=== PATIENT | female | born 1980 | race Caucasian/White ===

== ENCOUNTER → 2023-04-08 10:40 | Outpatient (BNVA) | payer OTHER, SELFPAY | PROVIDERS: Visit Provider Physician Assistant ==

== ENCOUNTER 2023-04-21 08:23 | Outpatient (AMB) | payer OTHER, SELFPAY ==
--- OUTSIDE RECORDS SUMMARY | 2023-04-21 08:24 | XMS_ITS | Continuity of Care Document ---
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
--- NOTE | 2023-04-21 12:07 | MHC.OFFVISWM ---
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 BMI 46.6 HPI Details Start time: 12pm, End time: 12.42pm ?I spent 37 minutes speaking with the patient on the phone plus an additional 5 minutes reviewing and updating records for a total of 42 minutes HPI Comments History of Present Illness Details Previous weight loss efforts: Weight Watchers, Keto diet, meal prep plans Wakes up: 5.30am, Sleeps: 11pm Breakfast: 6am (scrambled eggs with cheese) Lunch: 12-1pm (chicken salad, pizza, grinders) Dinner: 6pm (chicken steak, hamburger) Snacks: 10.30am (peppers, cherries), 2.30pm (cherries, peppers) Exercise: Gym Fluids: Coffee (1 cup/day with creamer), tea: 3-4 cups/day (plain), juice: none, soda: 1/wk, ETOH: 1/ 3 months PFSH Medical History (Updated 04/21/23 @ 12:10 by Damon Hayden MD) Asthma DJD (degenerative joint disease) Hyperlipidemia Morbid obesity Surgical History (Updated 04/08/23 @ 11:24 by Chela Schafer CMA) History of ankle surgery Hx of cholecystectomy Hx of colonoscopy Social History (Updated 04/08/23 @ 10:59 by Chela Schafer CMA) Alcohol intake: current Alcohol intake frequency: holidays/special occasions only Patient Tobacco Use Status: Never used Tobacco Assessment & Plan Assessment & Plan (1) Morbid obesity: Code(s): E66.01 - Morbid (severe) obesity due to excess calories Plan: 1.? Plan for lap sleeve gastrectomy. If diaphragmatic or ventral hernias are present at time of surgery, these will be repaired laparoscopically as well. Risks and complications were discussed in detail including possible conversion to an open procedure, anastomotic leak, bleeding requiring transfusion, small bowel obstruction, , DVT and pulmonary embolism, cardiac, or pulmonary complications, as chcf complications such as anastomotic ulcer, insufficient weight loss and vitamin deficiencies. I emphasized the importance of close follow-up, adherence to instructions and good communication. 2. Nutritional counseling. Start with 2 Pure protein (buy at [employer], [employer], [employer], [employer]) shakes (HALF scoop EACH in 8oz low fat unsweetened almond milk each) at 7am-9am and 10am-12pm, 2 protein bars (Zone Perfect protein bars, buy at [employer], ?[employer], [employer], or [employer]) at 1pm-3pm and 4pm-6pm, dinner at 7pm (10 forks of protein and 10 forks of salad/vegetables) and one more protein bar after dinner at 9pm-11pm. Meal to include lean meat (beef, fish, pork, turkey, chicken), or luxembourger yogurt, or egg whites, or beans with a salad with olive oil and fruits (berries, pears, apples, kiwi). Avoid salt, breads, potatoes, rice, pasta, desserts. 3. Each shake would be drunk slowly, like coffee in a period of 2 hours. May add your coffee into your shakes, if flavors match. 4. Cut each bar in 4 pieces and eat each piece in 30min ?to make each bar last 2 hours. 5. I emphasized the importance of measuring accurately the food portion and measure it when serving the food in plate 6. The meal portions include 10 full-size forks of meat and 10 full-size forks of salad. You always eat the meat portion but you can replace up to 5 forks for salad/vegetables with rice, potatoes or pasta, or a fruit ?if you like. The less you do it the better weight loss will be. 7. One full-size fork is what it can be scooped on the fork without falling aside and not what can be bit with the fork. Use regular forks like those you find in a typical restaurant. 8.? Please send me weight measurements as soon as possible and then once a week. Always include your diet and exercise plan. 9. Start walking outside daily, tracking calories with a goal of 300 calories per day, daily. Goal is to burn 2000 calories per week on exercise, which means either 300 calories daily, or 400 calories 5 days per week, or 500 calories 4 days per week, or 650 calories 3 days per week. 10. Alternatively purchase a stationary bike, elliptical or treadmill at home that can track calories. Let me know if you do so I can give you an exercise plan. 11.?It is important of avoiding and for at least 18 months postoperatively and has been discussed at the infosession. 12. Goal is to lose at least 1.5-2lbs per week 13. Goal to lose 10% of your weight before surgery, which is about 29lbs. Ultimate weight goal: 264lbs before surgery 14. Please follow the diet plan exactly without any change. If you don't like something about the plan or you feel hungry you need to communicate with me so I can help you revise the plan. You should not change the plan yourself. (2) Hyperlipidemia: Code(s): E78.5 - Hyperlipidemia, unspecified (3) Asthma: Code(s): J45.909 - Unspecified asthma, uncomplicated Orders: Orders Vitamin B12 and Folate Today E66.01 - Morbid (severe) obesity due to excess calories, E78.5 - Hyperlipidemia, unspecified, J45.909 - Unspecified asthma, uncomplicated Comprehensive Met. Panel Today E66.01 - Morbid (severe) obesity due to excess calories, E78.5 - Hyperlipidemia, unspecified, J45.909 - Unspecified asthma, uncomplicated C Reactive Protein Today E66.01 - Morbid (severe) obesity due to excess calories, E78.5 - Hyperlipidemia, unspecified, J45.909 - Unspecified asthma, uncomplicated Ferritin Today E66.01 - Morbid (severe) obesity due to excess calories, E78.5 - Hyperlipidemia, unspecified, J45.909 - Unspecified asthma, uncomplicated Hemoglobin A1c Today E66.01 - Morbid (severe) obesity due to excess calories, E78.5 - Hyperlipidemia, unspecified, J45.909 - Unspecified asthma, uncomplicated Insulin Today E66.01 - Morbid (severe) obesity due to excess calories, E78.5 - Hyperlipidemia, unspecified, J45.909 - Unspecified asthma, uncomplicated IRON PROFILE Today E66.01 - Morbid (severe) obesity due to excess calories, E78.5 - Hyperlipidemia, unspecified, J45.909 - Unspecified asthma, uncomplicated Lipid Panel Today E66.01 - Morbid (severe) obesity due to excess calories, E78.5 - Hyperlipidemia, unspecified, J45.909 - Unspecified asthma, uncomplicated PTHI Today E66.01 - Morbid (severe) obesity due to excess calories, E78.5 - Hyperlipidemia, unspecified, J45.909 - Unspecified asthma, uncomplicated TSH reflex Free T4 Today E66.01 - Morbid (severe) obesity due to excess calories, E78.5 - Hyperlipidemia, unspecified, J45.909 - Unspecified asthma, uncomplicated Vitamin A Today E66.01 - Morbid (severe) obesity due to excess calories, E78.5 - Hyperlipidemia, unspecified, J45.909 - Unspecified asthma, uncomplicated Vitamin B1 Today E66.01 - Morbid (severe) obesity due to excess calories, E78.5 - Hyperlipidemia, unspecified, J45.909 - Unspecified asthma, uncomplicated Vitamin D 25-OH Total Today E66.01 - Morbid (severe) obesity due to excess calories, E78.5 - Hyperlipidemia, unspecified, J45.909 - Unspecified asthma, uncomplicated Zinc Today E66.01 - Morbid (severe) obesity due to excess calories, E78.5 - Hyperlipidemia, unspecified, J45.909 - Unspecified asthma, uncomplicated ECG 12 lead EKG Today E66.01 - Morbid (severe) obesity due to excess calories, E78.5 - Hyperlipidemia, unspecified, J45.909 - Unspecified asthma, uncomplicated FL upper GI w air Today E66.01 - Morbid (severe) obesity due to excess calories, E78.5 - Hyperlipidemia, unspecified, J45.909 - Unspecified asthma, uncomplicated Complete Blood Count Auto Diff Today E66.01 - Morbid (severe) obesity due to excess calories, E78.5 - Hyperlipidemia, unspecified, J45.909 - Unspecified asthma, uncomplicated H Pylori Breath Test Today E66.01 - Morbid (severe) obesity due to excess calories, E78.5 - Hyperlipidemia, unspecified, J45.909 - Unspecified asthma, uncomplicated US abdomen comp w elastography Today E66.01 - Morbid (severe) obesity due to excess calories, E78.5 - Hyperlipidemia, unspecified, J45.909 - Unspecified asthma, uncomplicated XR chest 2V Today E66.01 - Morbid (severe) obesity due to excess calories, E78.5 - Hyperlipidemia, unspecified, J45.909 - Unspecified asthma, uncomplicated Referrals Behavioral Health Referral E66.01 - Morbid (severe) obesity due to excess calories, E78.5 - Hyperlipidemia, unspecified, J45.909 - Unspecified asthma, uncomplicated Nutrition/Dietitian Referral E66.01 - Morbid (severe) obesity due to excess calories, E78.5 - Hyperlipidemia, unspecified, J45.909 - Unspecified asthma, uncomplicated Telehealth Telehealth Location of provider rendering services: practice address Location of patient: address on file Patient Identification confirmed using: Name, : Yes Telehealth method: voice only Patient verbally consented to treatment: Yes Patient verbally consented to billing insurance company: Yes Patient informed of any privacy concerns related to visit: Yes Minutes spent on Phone/Video with Pt.: 42 Coding Level of Care Code Tele New Pt Level 3 (62400) Diagnoses Morbid obesity E66.01 Hyperlipidemia E78.5 Asthma J45.909 Time Spent (min) 42
[2023-04-21 12:19] VITALS: BMI 46.6
== END 2023-04-21 12:43 | disposition home or self-care (01) ==
LOC: HO.HBS 08:23
PROVIDERS: Visit Provider Surgery
DX: E66.01 Morbid (severe) obesity due to excess calories (principal); Z68.42 Body mass index [BMI] 45.0-49.9, adult; E78.5 Hyperlipidemia, unspecified; J45.909 Unspecified asthma, uncomplicated
CPT/HCPCS: 99204

== ENCOUNTER → 2023-04-21 08:23 | Outpatient (BNVA) | payer OTHER, SELFPAY | PROVIDERS: Visit Provider Surgery ==

== ENCOUNTER → 2023-05-01 08:18 | Outpatient (BNVA) | payer OTHER, SELFPAY | PROVIDERS: PCP Student in an Organized Health Care Education/Training Program; Visit Provider Physician Assistant Surgical | DX: Z11.0 Encounter for screening for intestinal infectious diseases (principal) | CPT/HCPCS: 99211 ==

== ENCOUNTER 2023-05-01 15:15 | Outpatient (REF) | payer OTHER, SELFPAY ==
[2023-05-06 15:29] LABS: H Pylori Breath Test Negative (Negative)
== END 2023-05-01 15:16 | disposition home or self-care (01) ==
LOC: HO.LNP 15:15
PROVIDERS: Visit Provider Surgery
DX: E66.01 Morbid (severe) obesity due to excess calories (principal); E78.5 Hyperlipidemia, unspecified; J45.909 Unspecified asthma, uncomplicated
CPT/HCPCS: 83013

== ENCOUNTER 2023-05-07 15:06 | Outpatient (REF) | payer OTHER, SELFPAY ==
--- NOTE | ~2023-05-07 | XR_ITS ---
EXAMINATION: XR CHEST 2 VIEWS CLINICAL INFORMATION: Morbid obesity. COMPARISON: None. TECHNIQUE: Frontal and lateral views of the chest were obtained. FINDINGS: The heart, great vessels, pulmonary vasculature and mediastinum are normal. The lungs show no focal infiltrate, effusion or pneumothorax. There is no acute osseous abnormality. XR/XR chest 2V IMPRESSION: No active cardiopulmonary disease.
--- NOTE | ~2023-05-07 | US_ITS ---
EXAMINATION: US COMPLETE ABDOMEN WITH LIVER ELASTOGRAPHY CLINICAL INFORMATION: Morbid obesity. COMPARISON: None available. TECHNIQUE: Real-time imaging of the abdominal viscera. Noninvasive ultrasound liver fibrosis assessment is performed using Dean ElastPQ point quantification shear wave elastography (2D-SWE) with a C5-2 MHz transducer. Multiple elastography samples are obtained. FINDINGS: PANCREAS: Obscured by overlying bowel gas with only portions of the head being identified which appears unremarkable. ABDOMINAL AORTA: The proximal, middle, and distal aortic segments are normal in caliber. INFERIOR VENA CAVA: Visualized portions are normal. LIVER: The liver has increased echogenicity consistent with fatty infiltration/hepatocellular disease. No focal masses or intrahepatic bile duct dilatation is seen. The right lobe measures 17.8 cm in length. The left lobe measures 10.8 cm in length. Portal flow is hepatopedal. Shear wave liver elastography median stiffness is 1.47 m/s (reference: normal median stiffness is 1.3 m/s or less). IQR/median stiffness to assess sampling precision is 0.24 (reference: good quality data set is IQR/median stiffness of 0.15 or less). GALLBLADDER: Status post cholecystectomy. COMMON BILE DUCT: Normal in caliber measuring 0.4 cm in diameter. RIGHT KIDNEY: Normal. No hydronephrosis. No renal calculi or focal parenchymal lesions. The kidney measures 9.6 cm in maximum dimension. LEFT KIDNEY: Normal. No hydronephrosis. No renal calculi or focal parenchymal lesions. The kidney measures 10.2 cm in maximum dimension. SPLEEN: Prominent. No focal mass. The spleen measures 12.7 cm in maximum dimension. FREE FLUID: No free fluid appreciated. US/US abdomen comp w elastography IMPRESSION: 1. Fatty infiltration of the liver. 2. Prominent spleen at 12.7 cm in vertical span. 3. Liver elastography: Although measurements appear to rule out compensated advanced chronic liver disease, there is statistical variability of the sampling which decreases accuracy. REFERENCE: Society of Radiologists in Ultrasound Liver Stiffness Thresholds (2020): LIVER STIFFNESS THRESHOLDS: *Liver Stiffness equal or less than 1.3 m/s: High probability of being normal. *Liver Stiffness less than 1.7 m/s: In the absence of other known clinical signs, rules out compensated advanced chronic liver disease. *Liver Stiffness 1.7-2.1 m/s: Suggestive of compensated advanced chronic liver disease but need further test for confirmation. *Liver Stiffness over 2.1 m/s: Rules in compensated advanced chronic liver disease. *Liver Stiffness over 2.4 m/s: Suggestive of clinically significant portal hypertension. QUALITY OF DATA SET: *IQR/Median value equal or less than 0.15 implies a quality data set. *IQR/Median value over 0.15 implies a poor quality data set. SIGNIFICANT CHANGE FROM PRIOR EXAM: Significant change if liver stiffness measurement is 10% or greater from prior exam. OTHER CONSIDERATIONS: The stage of liver fibrosis may be overestimated in the setting of acute hepatitis, liver inflammation, elevated liver function tests, hepatic vascular congestion, obstructive cholestasis, non-fasting state, and infiltrative diseases such as amyloidosis and lymphoma. In some patients with NAFLD, the liver stiffness thresholds for compensated advanced chronic liver disease may be lower. In causes other than viral hepatitis and NAFLD, liver stiffness thresholds are not well established.
[2023-05-07 15:59] LABS: MANUAL DIFF FLAG NO
[2023-05-07 17:31] LABS: Basophils Percent Auto 0.4 % (0-2); Eosinophils Absolute Auto 0.1 X10*3/uL (0.0-0.4); Eosinophils Percent Auto 1.6 % (0-4); Hematocrit 42.9 % (37.0-47.0); Hemoglobin 13.7 g/dl (12.0-16.0); Imm Gran Abs Auto 0.02 X10*3/uL (0.00-0.03); Imm Gran Pct Auto 0.3 % (0.0-0.4); Lymphocytes Absolute Auto 2.1 X10*3/uL (1.2-4.9); Lymphocytes Percent Auto 31.6 % (20-40); Mean Corpuscular HGB Conc 31.9 g/dl (31.0-35.0); Mean Corpuscular Hemoglobin 26.7 pg (27.0-33.0); Mean Corpuscular Volume 83.6 fL (80.0-98.0); Mean Platelet Volume 10.1 fL (9.4-12.3); Monocytes Absolute Auto 0.5 X10*3/uL (0.1-1.2); Monocytes Percent Auto 6.7 % (2-11); Neutrophils Percent Auto 59.4 % (45-73); Platelet Count 372 X10*3/uL (160-400); Red Blood Count 5.13 X10*6/uL (4.20-5.50); Red Cell Distribution Width 13.6 % (11.0-16.0); White Blood Count 6.7 X10*3/uL (4.8-10.8)
[2023-05-07 18:08] LABS: Alanine Aminotransferase 8 U/L (0-31); Albumin Level 4.3 g/dL (3.5-5.0); Alkaline Phosphatase 75 U/L (39-117); Anion Gap 14 (12-20); Aspartate Amino Transferase 14 U/L (5-31); Bilirubin Total 0.7 mg/dL (0.0-1.0); Blood Urea Nitrogen 15 mg/dL (9-16); C Reactive Protein 1.03 mg/dL (< or = 0.50); Calcium 9.5 mg/dL (8.4-10.2); Carbon Dioxide 27 mmol/L (22-29); Chloride 104 mmol/L (96-108); Cholesterol 209 mg/dL (<200); Estimated Glomerular Filt Rate > 60; Glucose Random 75 mg/dL (60-115); HDL Cholesterol 44 mg/dL (>40); Iron 46 mcg/dL (30-160); LDL Cholesterol Calculated 146 mg/dL (<100); Percent Iron Saturation 14 % (15-50); Potassium 3.7 mmol/L (3.3-5.1); Sodium 141 mmol/L (135-145); Total Iron Binding Capacity 319 mcg/dL (228-428); Total Protein 7.9 g/dL (6.5-8.0); Triglycerides 99 mg/dL (<150); Unsaturated Iron Binding 273 ug/dL
[2023-05-07 18:24] LABS: Ferritin 22 ng/mL (10-250); Insulin 6 uU/mL (2-29); TSH reflex Free T4 1.97 uIU/mL (0.32-4.0); Vitamin D 25-OH Total 38.6 ng/mL (>30)
[2023-05-07 18:34] LABS: Folate 13.1 ng/mL (> or = 4.0); Vitamin B12 881 pg/mL (200-900)
[2023-05-08 05:23] LABS: Estimated Average Glucose 97 mg/dL
[2023-05-09 23:58] LABS: Calcium (PTHI) 9.5 mg/dL (8.6-10.2); PTHI 62 pg/mL (16-77)
[2023-05-10 17:18] LABS: Zinc 80 mcg/dL (60-130)
[2023-05-12 15:04] LABS: Vitamin B1 14 nmol/L (8-30)
[2023-05-14 17:19] LABS: Vitamin A 28 mcg/dL (38-98)
== END 2023-05-07 15:07 | disposition home or self-care (01) ==
LOC: HO.US 15:06
PROVIDERS: PCP Student in an Organized Health Care Education/Training Program; Visit Provider Surgery
DX: E66.01 Morbid (severe) obesity due to excess calories (principal); E78.5 Hyperlipidemia, unspecified; J45.909 Unspecified asthma, uncomplicated
CPT/HCPCS: 36415; 71046; 76705; 76981; 80053; 80061; 82306; 82607; 82728; 82746; 83036; 83525; 83540; 83970; 84425; 84443; 84590; 84630; 85025; 86140

== ENCOUNTER 2023-05-13 10:11 | Outpatient (AMB) | payer OTHER, SELFPAY ==
--- NOTE | 2023-05-13 10:22 | MHC.AMNUTRGE ---
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 no issues, has been consistent. Hasn't started exercise yet . No classes yet, pt reports she didn't know about them. Has questions on nutrition label reading today . Provided education in office today using food labels examples. Previous weight loss methods attempted Right before starting program, she had achieved a 30# weight loss on her own by exercising. She took about 2 weeks off and regained 30 lb. This is when she realized she needed help and enrolled in our program [facility] 10 years ago, met with the dietitian there and had a bad experience so she never continued the program. Dietary counseling reduction Who buys your food self Who prepares/cooks your food self and parent Meal frequency regular: breakfast (eggs or toast), lunch (sandwich), dinner (two helpings of rice ) and snacks (snacks on vegetables during the day ) Lifestyle Emotional Eating Reports stress Exercise Yes (Gym every morning ) Food frequency Dairy: daily, Fruit: daily, Vegetables: daily, Grains/pasta/breads/cereal (carbs): daily, Meats/poultry/fish (protein): daily, Meat substitutes/nuts/seeds/legumes: daily, Processed foods/meats: daily, Restaurants/fast foods: several times weekly and Desserts/sweets: several times weekly Diagnosis Nutrition problem #1 overweight/obesity As related to (etiology) #1 excess energy intake and physical inactivity As evidenced by (sign/symptom) #1 high BMI Monitoring/Goals Nutrition problem monitoring total energy intake, level of knowledge/skill, total PRO intake, total CHO intake and weight Outcome progress progressing Learning/Education Readiness to learn excellent Stages of change action Educational materials provided Yes Most Recent Diabetes Results: Cholesterol 209 mg/dL (<200) H 05/07/23 HDL Cholesterol 44 mg/dL (>40) 05/07/23 Triglycerides 99 mg/dL (<150) 05/07/23 Creatinine 0.78 mg/dL (0.5-1.4) 05/07/23 Blood Urea Nitrogen 15 mg/dL (9-16) 05/07/23 Sodium 141 mmol/L (135-145) 05/07/23 Potassium 3.7 mmol/L (3.3-5.1) 05/07/23 Chloride 104 mmol/L (96-108) 05/07/23 Carbon Dioxide 27 mmol/L (22-29) 05/07/23 Calcium 9.5 mg/dL (8.4-10.2) 05/07/23 AST 14 U/L (5-31) 05/07/23 ALT 8 U/L (0-31) 05/07/23 Total Protein 7.9 g/dL (6.5-8.0) 05/07/23 Albumin 4.3 g/dL (3.5-5.0) 05/07/23 PFSH Medical History (Updated 04/21/23 @ 12:10 by Damon Hayden MD) Asthma Hyperlipidemia DJD (degenerative joint disease) Morbid obesity Surgical History (Updated 04/08/23 @ 11:24 by Chela Schafer CMA) Hx of colonoscopy History of ankle surgery Hx of cholecystectomy Social History (Updated 04/08/23 @ 10:59 by Chela Schafer CMA) Alcohol intake: current Alcohol intake frequency: holidays/special occasions only Patient Tobacco Use Status: Never used Tobacco Assessment & Plan Assessment & Plan (1) Morbid obesity: Code(s): E66.01 - Morbid (severe) obesity due to excess calories Patient Instructions: Patient is doing well and will likely be a good candidate for bariatric surgery once she completes the program requirements. Complete online classes. Implement a consistent exercise routine. Nutrition Education provided today and will likely need a review. She will follow up again in office at patient request on 06/18 at 09:30 Coding Level of Care Code Nutr Indiv Intake (81406) Diagnoses Morbid obesity E66.01 Time Spent (min) 45
[2023-05-13 11:04] VITALS: BMI 45.8
== END 2023-05-13 11:04 | disposition home or self-care (01) ==
PROVIDERS: PCP Student in an Organized Health Care Education/Training Program; Visit Provider Dietitian, Registered
DX: E66.01 Morbid (severe) obesity due to excess calories (principal)

== ENCOUNTER → 2023-05-13 10:11 | Outpatient (BNVA) | payer OTHER, SELFPAY | PROVIDERS: PCP Student in an Organized Health Care Education/Training Program; Visit Provider Dietitian, Registered | DX: E66.01 Morbid (severe) obesity due to excess calories (principal); Z68.42 Body mass index [BMI] 45.0-49.9, adult | CPT/HCPCS: 97802 ==

== ENCOUNTER 2023-05-19 08:11 | Outpatient (AMB) | payer OTHER, SELFPAY ==
--- NOTE | 2023-05-19 12:38 | A.OFFVIS_ITS ---
Intake VS Expanded 05/19/23 12:48 Height 5 ft 6.5 in Weight 284 lb 6 oz BMI 45.2 Body Fat 176.4 Body Fat Percentage 62 Free Fat Mass 108.2 Visceral Mass 27 Water Mass 73.9 BMR 1,439 Intake Visit Reasons: TV Follow Up SWL - 1ST Allergies adhesive Allergy (Mild, Verified 04/21/23 12:08) Rash augmentin Allergy (Mild, Uncoded 04/21/23 12:08) Rash LATEX Allergy (Mild, Uncoded 04/21/23 12:08) RASH HPI TV Follow Up SWL - 1ST HPI Details Start time: 12.34pm, End time: 12.59pm ?I spent 20 minutes speaking with the patient on the phone plus an additional 5 minutes reviewing and updating records for a total of 25 minutes HPI Comments History of Present Illness Details Overall weight loss: 8.8lbs, or 3% TBWL Is doing 2 Pure protein shakes (1/2 scoop in almond milk), 2 Zone Perfect protein bars, one meal (10 forks of meat and 5 forks of salad and 5 forks potatoes or rice). Exercise: Gym x5 days per week doing treadmill. [facility] Medical History (Updated 05/14/23 @ 17:42 by Damon Hayden MD) Asthma Hyperlipidemia DJD (degenerative joint disease) Morbid obesity Surgical History (Updated 04/08/23 @ 11:24 by Chela Schafer CMA) Hx of colonoscopy History of ankle surgery Hx of cholecystectomy Social History (Updated 04/08/23 @ 10:59 by Chela Schafer CMA) Alcohol intake: current Alcohol intake frequency: holidays/special occasions only Patient Tobacco Use Status: Never used Tobacco Assessment & Plan Assessment & Plan (1) Morbid obesity: Code(s): E66.01 - Morbid (severe) obesity due to excess calories Plan: 1. Continue same nutritional plan of 2 Pure protein shakes (1/2 scoop in almond milk), 2 Zone Perfect protein bars, one meal (10 forks of meat and 10 forks of salad or vegetables) 2. Exercise: Gym x5 days per week doing treadmill for 400 calories per workout, 5 days per week. Start treadmill with an incline of 2.0 and speed of 3.0. Increase incline by 1 every 3 min to a max incline of 8.0, stay 3min at 8.0 and then return to 2.0 and repeat same steps until calorie goal is met. Goal is to burn 2000 calories per week on exercise, which means either 300 calories daily, or 400 calories 5 days per week, or 500 calories 4 days per week, or 650 calories 3 days per week. 3. Continue to send me weight measurements weekly on Wednesdays Telehealth Telehealth Location of provider rendering services: practice address Location of patient: address on file Patient Identification confirmed using: Name, : Yes Telehealth method: voice only Patient verbally consented to treatment: Yes Patient verbally consented to billing insurance company: Yes Patient informed of any privacy concerns related to visit: Yes Coding Level of Care Code Tele Est Pt Level 3 (57504) Diagnoses Morbid obesity E66.01 Time Spent (min) 25
[2023-05-19 12:48] VITALS: BMI 45.2
== END 2023-05-19 12:59 | disposition home or self-care (01) ==
LOC: HO.HBS 08:11
PROVIDERS: PCP Student in an Organized Health Care Education/Training Program; Visit Provider Surgery
DX: E66.01 Morbid (severe) obesity due to excess calories (principal); Z68.42 Body mass index [BMI] 45.0-49.9, adult
CPT/HCPCS: 99213

== ENCOUNTER → 2023-05-19 08:11 | Outpatient (BNVA) | payer OTHER, SELFPAY | PROVIDERS: PCP Student in an Organized Health Care Education/Training Program; Visit Provider Surgery ==

== ENCOUNTER 2023-05-22 09:59 | Outpatient (AMB) | payer OTHER, SELFPAY ==
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
== END 2023-05-22 11:15 | disposition home or self-care (01) ==
PROVIDERS: PCP Student in an Organized Health Care Education/Training Program; Visit Provider Counselor Mental Health
DX: F32.A Depression, unspecified (principal); F43.9 Reaction to severe stress, unspecified
CPT/HCPCS: 90837

== ENCOUNTER → 2023-05-22 09:59 | Outpatient (REF) | payer OTHER, SELFPAY ==
--- NOTE | 2023-05-22 11:38 | ECG_ITS ---
Test Reason : e66.01 Blood Pressure : / mmHG Vent. Rate : 058 BPM Atrial Rate : 058 BPM P-R Int : 140 ms QRS Dur : 086 ms QT Int : 432 ms P-R-T Axes : 062 020 025 degrees QTc Int : 424 ms Sinus bradycardia with sinus arrhythmia Nonspecific T wave abnormality Abnormal ECG No previous ECGs available Referred By: Damon Hayden Electronically Signed By:MAGEN MIRANDA
== END ==
LOC: HO.CARD 09:59
PROVIDERS: Absent Provider Surgery; PCP Student in an Organized Health Care Education/Training Program; Visit Provider Counselor Mental Health
DX: J45.909 Unspecified asthma, uncomplicated (principal); E66.01 Morbid (severe) obesity due to excess calories; E78.5 Hyperlipidemia, unspecified
CPT/HCPCS: 93005

== ENCOUNTER 2023-06-13 09:29 | Outpatient (REF) | payer OTHER, SELFPAY | END 2023-06-13 09:30 | disposition home or self-care (01) | LOC: HO.XRAY 09:29 | PROVIDERS: PCP Student in an Organized Health Care Education/Training Program; Visit Provider Surgery | DX: E66.01 Morbid (severe) obesity due to excess calories (principal); J45.909 Unspecified asthma, uncomplicated; E78.5 Hyperlipidemia, unspecified | CPT/HCPCS: 99212 ==

== ENCOUNTER 2023-06-13 12:30 | Outpatient (AMB) | payer SELFPAY ==
--- NOTE | 2023-06-13 12:49 | MHC.OFFVISWM ---
Intake VS Expanded 06/13/23 13:00 Height 5 ft 6.5 in Weight 273 lb 6 oz BMI 43.5 Body Fat % 59.3 Body Fat Mass 162.2 Fat Free Mass 111.4 Visceral Fat Rating 26 Body Water % 27.9 Body Water Mass 76.3 Basal Metabolic Rate/Score 1,442 Intake Visit Reasons: TV Follow Up SWL Allergies adhesive Allergy (Mild, Verified 04/21/23 12:08) Rash augmentin Allergy (Mild, Uncoded 04/21/23 12:08) Rash LATEX Allergy (Mild, Uncoded 04/21/23 12:08) RASH HPI HPI Comments History of Present Illness Details Overall weight loss: 19.8lbs, or 6.75% TBWL Is doing 2 Pure protein shakes (1/2 scoop in 8oz almond milk), 2 Zone Perfect protein bars and one meal (10 forks of protein and 10 forks of salad or vegetables) and one bar of pea crisps Exercise: going to the Gym 6 days per week doing the treadmill for 330 calories PFSH Medical History (Updated 05/29/23 @ 20:41 by Damon Hayden MD) Asthma Hyperlipidemia DJD (degenerative joint disease) Morbid obesity Surgical History (Updated 04/08/23 @ 11:24 by Chela Schafer CMA) Hx of colonoscopy History of ankle surgery Hx of cholecystectomy Social History (Updated 04/08/23 @ 10:59 by Chela Schafer CMA) Alcohol intake: current Alcohol intake frequency: holidays/special occasions only Patient Tobacco Use Status: Never used Tobacco Physical Exam Vital Signs: BMI result Body Mass Index 43.5 Assessment & Plan Assessment & Plan (1) Morbid obesity: Code(s): E66.01 - Morbid (severe) obesity due to excess calories Plan: 1. Continue same nutritional plan of 2 Pure protein shakes (1/2 scoop in 8oz almond milk), 2 Zone Perfect protein bars and one meal (10 forks of protein and 10 forks of salad or vegetables) and one bag of pea crisps 2.Exercise: continue the Gym 6 days per week doing the treadmill for 330 calories. Goal is to burn 2000 calories per week on aerobic exercise 3. Continue to send me weight measurements weekly on Wednesdays Coding Level of Care Code Global (50751) Diagnoses Morbid obesity E66.01
[2023-06-13 13:00] VITALS: BMI 43.5
== END 2023-06-13 13:44 | disposition home or self-care (01) ==
PROVIDERS: PCP Student in an Organized Health Care Education/Training Program; Visit Provider Surgery
DX: E66.01 Morbid (severe) obesity due to excess calories (principal); Z68.41 Body mass index [BMI] 40.0-44.9, adult
CPT/HCPCS: 99213